=== PATIENT | male | born 2000 | race Caucasian/White ===

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

== ENCOUNTER 2021-11-19 08:44 | Emergency (ER) | payer MEDICAID, OTHER, SELFPAY ==
[~2021-11-19] VITALS: Ht 177.8 cm; Wt 64.2 kg
[~2021-11-19 08:44] MED LIST changes: -ALLE10TA2 PO; +LORA-753 PO; +NAPR-837 PO; -NAPR500T PO
[2021-11-19 09:51] LABS: BASO % 0.4 % (0.0-1.0); EOS # 0.1 10^3/uL (0.0-0.5); EOS % 0.7 % (0.0-3.0); HEMATOCRIT 49.2 % (42.0-52.0); HEMOGLOBIN 16.4 g/dl (13.5-17.5); LYMPH # 2.2 10^3/uL (1.5-5.0); LYMPH % 23.1 % (24.0-44.0); MEAN CORPUSCULAR HEMOGLOBIN 28.9 pg (27.0-33.0); MEAN CORPUSCULAR HGB CONC 33.3 g/dl (32.0-36.5); MEAN CORPUSCULAR VOLUME 86.6 fl (80.0-96.0); MONO # 0.4 10^3/uL (0.0-0.8); MONO % 4.6 % (2.0-8.0); NEUTROPHILS # 6.8 10^3/uL (1.5-8.5); NEUTROPHILS % 70.8 % (36.0-66.0); PLATELET COUNT, AUTOMATED 224 10^3/uL (150-450); RED BLOOD COUNT 5.68 10^6/uL (4.30-6.10); WHITE BLOOD COUNT 9.6 10^3/uL (4.0-10.0)
[2021-11-19] MEDS ORDERED: GI COCKTAIL 50ML BTL(HYOSCYAMINE/MAALOX/LIDOCAINE VISCOUS)(1:3:1) PO ONE (10:05)
[2021-11-19] MEDS ORDERED: FAMOTIDINE 20MG/2ML VIAL IVP ONE (10:05)
[2021-11-19] MEDS ORDERED: NS 1,000 ML IV ONE (10:05)
[2021-11-19 10:33] LABS: ALBUMIN 4.4 GM/DL (3.2-5.2); ALT/SGPT 21 U/L (12-78); BILIRUBIN,DIRECT 0.1 MG/DL (0.0-0.2); BILIRUBIN,TOTAL 0.7 MG/DL (0.2-1.0); BLOOD UREA NITROGEN 17 MG/DL (7-18); CALCIUM LEVEL 9.6 MG/DL (8.5-10.1); CARBON DIOXIDE LEVEL 28 MEQ/L (21-32); CHLORIDE LEVEL 112 MEQ/L (98-107); CREATININE FOR GFR 1.05 MG/DL (0.70-1.30); GLOMERULAR FILTRATION RATE > 60.0 (>60); GLUCOSE, FASTING 101 MG/DL (70-100); LIPASE 82 U/L (73-393); POTASSIUM SERUM 4.3 MEQ/L (3.5-5.1); SODIUM LEVEL 145 MEQ/L (136-145); TOTAL PROTEIN 7.1 GM/DL (6.4-8.2)
[2021-11-19] MEDS ORDERED: ISOVUE-370 76% 100ML VIAL As Ordered ONE (10:48)
[2021-11-19] MEDS ORDERED: SUCR1SS PO (12:28)
[2021-11-19] MEDS ORDERED: ONDA4TAB6 PO (12:28)
[2021-11-19] MEDS ORDERED: ONDANSETRON 4MG 2ML VIAL IV ONE (12:30)
[2021-11-19 12:42] VITALS: BP 118/69
== END 2021-11-19 12:45 | disposition home or self-care (01) ==
LOC: M ED 08:44
DX: K52.9 Noninfective gastroenteritis and colitis, unspecified (principal); Z79.899 Other long term (current) drug therapy
CPT/HCPCS: 74177; 80048; 80076; 83690; 84484; 85025; 93005; 96361; 96374; 96375; 99284; J2405; Q9967